=== PATIENT | male | born 1955 | race Caucasian/White ===

== ENCOUNTER 2023-05-11 23:59 | Emergency (ER) | payer BC ==
[~2023-05-11] VITALS: Ht 170.2 cm; Wt 75.0 kg
[2023-05-12 00:15] VITALS: O2SAT 99
[2023-05-12 00:50] LABS: HEMATOCRIT. 22.3 % (42.0-52.0); HEMOGLOBIN. 7.6 g/dL (14.0-18.0); MEAN CORPUSCULAR HEMOGLOBIN 30.4 pg (28.0-32.0); MEAN CORPUSCULAR VOLUME 89.5 fL (80.0-94.0); MEAN PLATELET VOLUME 7.7 fl (7.4-10.4); PLATELET 94 x1000/uL (130-400); RED BLOOD CELL COUNT 2.49 mill/uL (4.7-6.1); RED CELL DISTRIBUTION WIDTH 14.7 % (11.6-14.6); WHITE BLOOD COUNT 5.4 x1000/uL (4.5-11.0)
[2023-05-12 00:51] LABS: INR 1.2; PARTIAL THROMBOPLASTIN TIME 28.6 sec (23.4-31.0); PROTHROMBIN TIME 13.1 sec (9.6-11.0)
[2023-05-12 00:53] LABS: ALANINE AMINOTRANSFERASE 26 IU/L (10-49); ALBUMIN 3.8 g/dL (3.2-4.8); ASPARTATE AMINOTRANSFERASE 23 IU/L (<34); BILIRUBIN TOTAL 0.4 mg/dL (0.1-1.0); CALCIUM 11.7 mg/dL (8.7-10.4); CARBON DIOXIDE 21 mEq/L (21-32); CHLORIDE 95 mEq/L (98-107); DIFFERENTIAL COMMENT 1; ETHANOL BLOOD < 10 mg/dL (<10); GLUCOSE 85 mg/dL (70-105); POTASSIUM 5.2 mEq/L (3.5-5.1); PROTEIN TOTAL 6.9 g/dL (6.0-8.3); SODIUM 133 mEq/L (136-145); TROPONIN I HIGH SENSITIVITY 50 ng/L (3.0-53); UREA NITROGEN BLOOD 94 mg/dL (9-23)
[2023-05-12 01:03] LABS: CREATININE 16.6 mg/dL (0.6-1.3)
[2023-05-12 01:18] LABS: PLATELET ESTIMATE DECREASED
[2023-05-12] MEDS ORDERED: LEVOFLOXACIN 750MG PREMIX 150 ML IV ONE (02:00)
[2023-05-12] MEDS ORDERED: MORPHINE SULFATE 2 MG/ML CPJ (NOT FOR IM USE) IV ONE (05:30)
[2023-05-12] MEDS ORDERED: VANCOMYCIN 1G PREMIX 200 ML IV NR (06:00)
[2023-05-12] MEDS ORDERED: HYDROCODONE/ACETAMINOPHEN 5/325MG TABLET PO PRN (07:30)
[2023-05-12] MEDS ORDERED: MORPHINE SULFATE 2 MG/ML CPJ (NOT FOR IM USE) IV PRN (07:30)
[2023-05-12] MEDS ORDERED: IPRATROPIUM/ALBUTEROL 0.5-3(2.5)MG/3ML NEB NEB PRN (07:30)
[2023-05-12] MEDS ORDERED: ACETAMINOPHEN 650MG/20.3ML UDC GT PRN (07:30)
[2023-05-12] MEDS ORDERED: DOCUSATE SODIUM 100MG CAPSULE PO PRN (07:30)
[2023-05-12] MEDS ORDERED: ONDANSETRON HCL 4MG/2ML INJ IV PRN (07:30)
[2023-05-12] MEDS ORDERED: ACETAMINOPHEN 325MG TABLET PO PRN (07:30)
[2023-05-12] MEDS ORDERED: DIPHENHYDRAMINE 50MG/ML VIAL IV PRN (07:30)
[2023-05-12] MEDS ORDERED: NALOXONE HCL 0.4MG/ML VIAL IV PRN (07:45)
[2023-05-12] MEDS ORDERED: MULTIVITAMINS,THER W-MINERALS TABLET PO SCH (09:00)
[2023-05-12 11:30] VITALS: BP 147/85; PULSE 102; RESP 24; TEMP 97.8
[2023-05-12] MEDS ORDERED: ENOXAPARIN 30MG/0.3ML SYR SUBCUT SCH (12:00)
[2023-05-12] MEDS ORDERED: IRON SUCROSE COMPLEX 100 MG/5 ML ML IV SCH (22:30)
== END 2023-05-12 14:36 | disposition left against medical advice (07) ==
LOC: ER 23:59 → EDBEDREQ 05-12 05:18 → ER 05-12 14:36
DX: E87.70 Fluid overload, unspecified (principal); J18.9 Pneumonia, unspecified organism; J90 Pleural effusion, not elsewhere classified; K92.2 Gastrointestinal hemorrhage, unspecified; D64.9 Anemia, unspecified; Z87.891 Personal history of nicotine dependence
CPT/HCPCS: 99291; 80053; 80320; 83880; 83605; 83690; 85025; 85610; 85730; 86850; 86900; 86901; 87040; 84484; 36415; 84145; 71045; 74176; 93005; 96367; 96365; 96366; 96375; 96376; J3370; J2270; J1956; G0480